=== PATIENT | female | born 1935 | race Caucasian/White ===

== ENCOUNTER 2021-05-06 16:24 | Inpatient (IN) | payer MEDICARE, BC, SELFPAY ==
[2021-05-06] VITALS (9 sets, daily range): BP systolic 116–160; BP diastolic 60–91; PULSE 56–78; RESP 14–19; TEMP 36.7–36.9; O2SAT 96–98; BMI 32.8
--- NOTE | 2021-05-06 16:26 | ECG_ITS ---
APPROVED REPORT Exam: Resting ECG HR:65 bpm ECG Measurements Heart Rate 65 AXES QRSd 90 QRS 52 QT 440 T 65 QTc 457 Conclusion Atrial fibrillation with a competing junctional pacemaker with premature ventricular or aberrantly conducted complexes Abnormal ECG Electronically signed by : Pk Alfrao MD 05/07/2021 07:55:14
--- NOTE | 2021-05-06 16:34 | XR_ITS ---
PROCEDURE INFORMATION: Exam: XR Chest Exam date and time: 05/06/2021 4:34 PM Age: 86 years old Clinical indication: Shortness of breath and other: Weakness; Additional info: Weakness, SOB TECHNIQUE: Imaging protocol: XR of the chest. Views: 1 view. COMPARISON: CR XR CHEST 2V 06/04/2019 5:00 PM FINDINGS: Lungs: Unremarkable. No consolidation. Pleural spaces: Unremarkable. No pleural effusion. No pneumothorax. Heart/Mediastinum: Unremarkable. No cardiomegaly. Bones/joints: Unremarkable. IMPRESSION: No acute findings.
--- NOTE | 2021-05-06 16:40 | HMH.EDGENADL ---
ED Disposition Clinical Impression: Afib Qualifiers: Atrial fibrillation type: persistent (not longstanding) Qualified Code(s): I48.19 - Other persistent atrial fibrillation Syncope Qualifiers: Syncope type: unspecified Qualified Code(s): R55 - Syncope and collapse Disposition: Admitted as Observation Condition on Discharge: Fair - Critical Care Critical Care Time: No Attestation: On , the high probability of a clinically significant, sudden or life threatening deterioration of the following system(s) required my full and direct attention, intervention and personal management. The time I documented below is in addition to time spent performing reported procedures but includes the following listed in this critical care notation. Medical Decision Making - Medical Records Medical records reviewed: Yes: I reviewed the patient's medical records. - Daniel Inquiry Pt receiving controlled substance: No Vital Signs: 05/06/21 16:29 05/06/21 17:01 05/06/21 17:30 Temperature 98.3 F Temperature Source Oral Pulse Rate 61 61 Pulse Rate [Left Radial] 61 Pulse Rate [Orthostatic Lying Apical] Pulse Rate [Orthostatic Sitting Apical] Pulse Rate [Orthostatic Standing Apical] Respiratory Rate 14 18 16 Blood Pressure 116/61 132/80 Blood Pressure [Orthostatic Lying Right Arm] Blood Pressure [Orthostatic Sitting Right Arm] Blood Pressure [Orthostatic Standing Right Arm] Blood Pressure [Right Arm] 133/60 Blood Pressure Mean 72 97 Blood Pressure Mean [Right Arm] 84 Blood Pressure Source Blood Pressure Source [Right Arm] Automatic Cuff Blood Pressure Position Blood Pressure Position [Right Arm] Sitting 02 Sat by Pulse Oximetry 96 96 96 Oxygen Delivery Method Room Air 05/06/21 18:00 05/06/21 18:52 05/06/21 20:04 Temperature 98.1 F Temperature Source Oral Pulse Rate 56 L 75 Pulse Rate [Left Radial] Pulse Rate [Orthostatic Lying Apical] 64 Pulse Rate [Orthostatic Sitting Apical] 73 Pulse Rate [Orthostatic Standing Apical] 70 Respiratory Rate 18 15 Blood Pressure 143/79 H 155/87 H Blood Pressure [Orthostatic Lying Right Arm] 160/90 H Blood Pressure [Orthostatic Sitting Right Arm] 140/88 Blood Pressure [Orthostatic Standing Right Arm] 157/80 H Blood Pressure [Right Arm] Blood Pressure Mean 97 Blood Pressure Mean [Right Arm] Blood Pressure Source Automatic Cuff Blood Pressure Source [Right Arm] Blood Pressure Position Sitting Blood Pressure Position [Right Arm] 02 Sat by Pulse Oximetry 96 Oxygen Delivery Method Room Air - Lab Data Lab Results 05/06/21 16:53: WBC 6.6, RBC 4.37, Hgb 14.0, Hct 40.2, MCV 92.1, MCH 32.0 H, MCHC 34.8, RDW 13.8, Plt Count 278, MPV 8.1, Neut % (Auto) 68.3, Lymph % (Auto) 20.8, Simpson % (Auto) 5.8, Eos % (Auto) 3.9, Baso % (Auto) 1.2, Neut # (Auto) 4.5, Lymph # (Auto) 1.4, Simpson # (Auto) 0.4, Eos # (Auto) 0.3, Baso # (Auto) 0.1 05/06/21 16:53: Sodium 133 L, Potassium 4.6, Chloride 102, Carbon Dioxide 19 L, Anion Gap 16.6 H, BUN 38 H, Creatinine 1.90 H, Estimated Creat Clear 28, Estimated GFR 25 L, Est GFR ( Amer) 30 L, Glucose 188 H, Calcium 9.1, Troponin I < 0.01 05/06/21 16:53: D-Dimer 0.80 H 05/06/21 17:00: SARS-CoV-2 (PCR) Not detected, Influenza A Untype (PCR) Not detected, Influenza Type B (PCR) Not detected Result diagrams: 05/06/21 16:53 05/06/21 16:53 Orders (Tests/Meds): ED MEDICATIONS Generic Name Dose Route Start Last Admin Trade Name Freq PRN Reason Stop Dose Admin Acetaminophen 650 mg 05/06/21 19:55 Acetaminophen 325mg Tab PO 06/05/21 20:05 Q4HP PRN Fever or Mild Pain Enoxaparin Sodium 40 mg 05/07/21 09:00 Enoxaparin 40mg/0.4ml Syringe SQ 06/06/21 08:59 DAILY RAOUL Lactated Ringer's 1,000 mls @ 50 mls/hr 05/06/21 19:55 05/06/21 20:08 Lactated Ringer's 1000 Ml Bag IV 06/05/21 20:05 50 mls/hr .Q20H RAOUL Administration Ondansetron HCl 4 mg
[2021-05-06 17:13] LABS: Coronavirus 19, PCR Not Detected (NotDetected); Influenza A, PCR Not Detected (NotDetected); Influenza B, PCR Not Detected (NotDetected)
[2021-05-06 17:18] LABS: Anion Gap 16.6 mEq/L (5-15); Blood Urea Nitrogen 38 mg/dl (7-17); Calcium 9.1 mg/dl (8.4-10.2); Carbon Dioxide 19 mmol/L (22.0-30.0); Chloride 102 mmol/L (98-107); Creatinine Clearance Estimated 28 mL/min (50-200); Estimated Glomerular Filt Rate 25 ml/min (>60); GFR (African American) 30 ML/MIN (>60); Glucose 188 mg/dl (74-100); Potassium 4.6 mmoL/L (3.5-5.1); Sodium 133 mmol/L (136-145)
[2021-05-06 17:30] LABS: Basophils # 0.1 K/mm3 (0-0.2); Basophils % 1.2 % (0.1-2.0); Eosinophils # 0.3 K/mm3 (0.0-0.4); Eosinophils % 3.9 % (0.1-12.0); Hematocrit 40.2 % (37.0-47.0); Lymphocytes # 1.4 K/mm3 (0.7-4.5); Lymphocytes % 20.8 % (10-50); Mean Corpuscular HGB Conc 34.8 g/dL (31.8-35.4); Mean Corpuscular Volume 92.1 fl (81-99); Mean Platelet Volume 8.1 fl (7.4-10.4); Monocytes # 0.4 K/mm3 (0.1-1.0); Monocytes % 5.8 % (1.7-9.3); Neutrophils # 4.5 K/mm3 (1.8-7.8); Neutrophils % 68.3 % (37.0-80.0); Platelet Count 278 K/mm3 (142-424); Red Blood Count 4.37 M/mm3 (4.20-5.40); Red Cell Distribution Width 13.8 % (11.5-17.5); White Blood Count 6.6 K/mm3 (4.8-10.8)
[2021-05-06 17:41] LABS: Troponin I < 0.01 ng/ml (0.00-0.034)
--- NOTE | 2021-05-06 18:30 | ECG_ITS ---
APPROVED REPORT Exam: Resting ECG HR:51 bpm ECG Measurements Heart Rate 51 AXES QRSd 94 QRS 62 QT 430 T 75 QTc 396 Conclusion Atrial fibrillation with slow ventricular response Abnormal ECG Electronically signed by : Pk Alfaro MD 05/07/2021 07:55:04
--- NOTE | 2021-05-06 19:12 | PC.NURSE ---
MALIKA GIBBS speaking with Dr. Roca at this time.
--- NOTE | 2021-05-06 20:47 | PC.NURSE ---
PT ARRIVED TO FLOOR VIA W/C FROM ED W/STAFF @ 2046
[2021-05-07] VITALS (8 sets, daily range): BP systolic 127–156; BP diastolic 61–86; PULSE 60–92; RESP 14–17; TEMP 36.4–37; O2SAT 95–97; BMI 32.5
[2021-05-07 06:51] LABS: Basophils # 0.1 K/mm3 (0-0.2); Basophils % 1.1 % (0.1-2.0); Eosinophils # 0.2 K/mm3 (0.0-0.4); Eosinophils % 2.8 % (0.1-12.0); Hematocrit 40.9 % (37.0-47.0); Hemoglobin 13.7 g/dL (12.2-16.2); Lymphocytes # 1.7 K/mm3 (0.7-4.5); Lymphocytes % 24.1 % (10-50); Mean Corpuscular HGB Conc 33.4 g/dL (31.8-35.4); Mean Corpuscular Hemoglobin 32.2 pg (27.0-31.2); Mean Corpuscular Volume 96.3 fl (81-99); Mean Platelet Volume 7.5 fl (7.4-10.4); Monocytes # 0.5 K/mm3 (0.1-1.0); Monocytes % 7.1 % (1.7-9.3); Neutrophils # 4.5 K/mm3 (1.8-7.8); Platelet Count 285 K/mm3 (142-424); Red Blood Count 4.24 M/mm3 (4.20-5.40); Red Cell Distribution Width 13.7 % (11.5-17.5); White Blood Count 6.9 K/mm3 (4.8-10.8)
[2021-05-07 06:56] LABS: Chloride 105 mmol/L (98-107)
[2021-05-07 06:57] LABS: Potassium 4.4 mmoL/L (3.5-5.1); Sodium 136 mmol/L (136-145)
[2021-05-07 06:59] LABS: Blood Urea Nitrogen 32 mg/dl (7-17); Creatinine Clearance Estimated 31 mL/min (50-200); Estimated Glomerular Filt Rate 28 ml/min (>60); GFR (African American) 34 ML/MIN (>60)
[2021-05-07 07:00] LABS: Anion Gap 14.4 mEq/L (5-15); Carbon Dioxide 21 mmol/L (22.0-30.0); Glucose 100 mg/dl (74-100); Magnesium 1.4 mg/dl (1.6-2.3)
--- NOTE | 2021-05-07 07:08 | PC.NURSE ---
pt admitted this shift, tele reveals atrial fibrillation with pvc's at a controlled rate 70-80, pt complained of insomnia and given tylenol to help rest, pt was restless most of the night, VSS, up to BSC with no complaints of dizziness and tolerates well.
--- NOTE | 2021-05-07 09:32 | HMH.HP ---
*Admission Date: 05/06/21 *Chief complaint: Weakness *History of present illness: This 86-year-old white female was admitted to the emergency room yesterday with complaints of weakness. She was found to be in atrial fibrillation with a slow ventricular response. She was admitted for further evaluation and treatment. She is not aware that she has had any problems with dysrhythmia in the past. Significant in her recent history is the loss of her 64-year-old son due to complications of multiple myeloma. She has certainly been stressed and saddened by this loss. Certainly these circumstances could raise the issue of Takotsubo cardiomyopathy. The patient has longstanding hypertension. She takes Cardizem to 40 mg daily and carvedilol 12.5 mg twice daily. I asked the emergency room doctor to not start the labetalol. Actually none of her routine medications were started last night. Apart from the weakness the patient has not experienced chest pain or shortness of breath. She has not experienced swelling. She was scheduled to see Dr. Monroe last week but the circumstances of her son's preempted this visit. There is a family history of heart disease. [facility] History Medical History: Reports:: Cancer (BLADDER), Hyperlipidemia, Hypertension Denies:: Atrial Fibrillation (No known prior history), Cardiomyopathy (No known prior history), Coronary Artery Disease (No known prior history), Diabetes Mellitus Type 1, Diabetes Mellitus Type 2, MRSA, Myocardial Infarction (No known prior history) *Have you ever received a pneumonia vaccine?: No *Have you received a flu vaccine this season?: No Other Medical History: Reports: Arthritis (Involving most all joints.) Other Surgeries: Yes: Colon Resection Amputation: No Fractures: No - *Social History Last grade of school completed: High school graduate Smoking Status: Never smoker Alcohol Intake: never *Occupational Status:: retired Household Members: none *Travel in the last 8 weeks: None Family Hx:: Cancer, Coronary Artery Disease, Hypertension, no Heart Attack (Congestive heart failure) LMP comments: post menopausal Review of Systems - Constitutional Reports body ache(s), Reports weakness, Denies chills, Denies fever(s) - Eyes Denies change in vision - ENT Reports abnormal hearing, Reports dizziness - *Cardiovascular Reports leg pain with activity, Reports irregular heart rhythm (Not previously aware), Reports lightheadedness, Denies chest pain, Denies chest pain at rest, Denies chest pain with activity, Denies shortness of breath causing sudden awakening, Denies foot swelling, Denies fast heart rate - *Respiratory Denies chest congestion, Denies cough - *Gastrointestinal Denies abdominal pain - *Genitourinary Denies abnormal periods - *Musculoskeletal Reports joint pain, Reports joint swelling, Reports limited joint movement, Reports muscle cramps (Legs), Reports muscle weakness, Reports body aches - Integumentary/Breasts Denies bleeding lesions, Denies yellowing of the skin - *Neurologic Reports dizziness, Reports weakness - Psychiatric Reports depression - Endocrine Reports rapid, pounding, or irregular heartbeat (Not aware), Denies cold intolerance, Denies excessive sweating - Hematologic/Lymphatic Denies easy bleeding, Denies easy bruising Meds Home Medications Medication Instructions Recorded Confirmed Type Losartan Potassium [Cozaar 100mg 100 mg PO DAILY 06/04/19 05/06/21 History Tablets] Omeprazole 20 mg PO DAILY 06/04/19 05/06/21 History Spironolactone [Spironolactone 25 mg PO BID 06/04/19 05/06/21 History 25mg Tablet] Temazepam [Restoril 15mg capsule] 15 mg PO HS 06/04/19 05/06/21 History carvediloL [Carvedilol 12.5mg Tab] 12.5 mg PO TID 06/04/19 05/06/21 History dilTIAZem HCL [Cartia Xt] 240 mg PO DAILY 06/04/19 05/06/21 History Escitalopram Oxalate 10 mg PO DAILY 05/06/21 05/06/21 History Nabumetone 500 mg PO TID 05/06/21 05/06/21 Hist
--- NOTE | 2021-05-07 10:06 | P.CONPHA_ITS ---
[facility] Pharmacy VTE Monitoring - Patient Demographics Admission date: 05/07/21 Report Date: 05/07/21 Time: 10:07 Allergies/Adverse Reactions: Patient Allergies Lffyzfp-Swq-Iqa Reductase Inhibitor [RONYXJP-HTX-ECT REDUCTASE INHIBITOR] Allergy (Unknown, Verified 06/04/19 16:43) Height: 1.6 m Weight: 83.5 kg Patient Problems: Current Active Problems Afib (Acute) Syncope (Acute) Bradycardia (Acute) Arthropathy (Acute) Situational depression (Acute) Weakness (Acute) Near syncope (Acute) - VTE Risk Labs: VTE Related Lab Results Hgb 13.7 g/dL (12.2-16.2) 05/07/21 06:15 Hct 40.9 % (37.0-47.0) 05/07/21 06:15 Plt Count 285 K/mm3 (142-424) 05/07/21 06:15 BUN 32 mg/dl (7-17) H 05/07/21 06:15 Creatinine 1.70 mg/dl (0.52-1.04) H 05/07/21 06:15 Estimated Creat Clear 31 mL/min (50-200) 05/07/21 06:15 VTE Score: 3 VTE Risk Level: Low Risk - Prophylaxis Types of VTE Prophylaxis: TEDS Knee High, Pharmacological Location of Applied Device: Bilateral Lower Extremeties Pharmacologic Type: Enoxaparin (LOVENOX AND NICOLE HOSE ORDERED)
[2021-05-08] VITALS: BP 136/71; PULSE 70; PULSE 89; RESP 16; TEMP 37.1; O2SAT 94
--- NOTE | 2021-05-08 02:48 | PC.NURSE ---
SINCE TAKING OVER CARE FOR PT AT 0100, PT HAS BEEN SLEEPING. HAS HAD NO C/O THUS FAR. HAS BEEN CONTROLLED AFIB ON TELE. VSS WILL CONTINUE TO MONITOR.
[2021-05-08 04:00] VITALS: PULSE 70
[2021-05-08 06:00] VITALS: BP 140/81; PULSE 85; RESP 14; TEMP 36.8; O2SAT 96
[2021-05-08 06:18] VITALS: BMI 32.5
[2021-05-08 08:00] VITALS: BP 153/89; PULSE 57; PULSE 79; RESP 15; TEMP 36.7; O2SAT 95
--- NOTE | 2021-05-08 08:00 | CA_ITS ---
APPROVED REPORT EXAM: Comprehensive 2D, Doppler, and color-flow Echocardiogram Gaming Commissioner: Petra Carl CRT Ht: 5 ft 2 in Wt: 184lbs BSA: 1.85 BP: 132/80 mmHg Indications: DNR, Bladder CA, recent of son 2D Dimensions LVOT 1.88 cm (M/F) 1.5-2.5 LA Volume 24.80 mL LA Volume Index 13.50 mL/m2 (M/F) 16-34 M-Mode Dimensions RVDd 2.90 cm (0.9-2.6) LA Diam 3.32 cm (1.9-4.0) LVDd 3.65 cm (3.5-5.7) Ao Diam 3.07 cm (2.0-3.7) LVDs 1.99 cm (3.5-5.7) IVSd 1.86 cm (0.6-1.1) PWd 0.69 cm (0.6-1.1) EF (Teich) 77.60% FS 45.50% EDV (Teich) 56.30 mL TAPSE 1.45 (<1.7) ESV (Teich) 12.60 mL Aortic Valve AO Peak GR. 4.40 mmHg Pulmonary Valve PV Peak Velocity 111.00 (50-150 cm/s) Tricuspid Valve TR P. Velocity 203.00 cm/s RAP Estimate 10.00 mmHg RVSP 26.50 mmHg Left Ventricle Left atrium is mildly enlarged, left ventricle is normal size, mild concentric left ventricular hypertrophy, visually estimated ejection fraction 55% with no obvious regional wall motion abnormality, diastolic parameters are inconclusive. Right Ventricle Right atrium and right ventricle are mildly enlarged with normal contractility. Aortic Valve Aortic valve is minimally thickened and calcified without aortic stenosis or aortic insufficiency. Mitral Valve Mitral valve leaflets are minimally thickened, there is mild mitral regurgitation. Tricuspid Valve Tricuspid valve grossly normal, there is mild tricuspid regurgitation, tricuspid regurgitation jet velocity is inadequate for calculation of the right ventricular systolic pressure. Pulmonic Valve Pulmonic valve is poorly visualized. Great Vessels Aortic root is normal size. Inferior vena cava is not well visualized. Pericardium No significant pericardial effusion noted. Conclusion 1. Mild biatrial enlargement, normal left ventricular size, mild concentric left ventricular hypertrophy, visually estimated ejection fraction 55% with no regional wall motion abnormality, diastolic parameters are inconclusive. 2. Mild mitral and tricuspid regurgitation. 3. No significant pericardial effusion noted. Electronically signed by : Ariel Lorenz MD 05/08/2021 20:31:01
--- NOTE | 2021-05-08 09:03 | HMH.ACPN2 ---
<Andria Ocampo - Last Filed: 05/08/21 09:03> Internal Medicine - PN: Subj *Date: 05/08/21 *Time: 09:03 Interval history: Pt has rested well overnight and is without complaint this morning. She denies SOB, CP, or palpitations. She is voiding qshift on BSC. Exam Vital signs and Labs for Last 24 Hours: Temp Pulse Resp BP Pulse Ox 98.0 F 57 L 15 153/89 H 95 05/08/21 08:00 05/08/21 08:00 05/08/21 08:00 05/08/21 08:00 05/08/21 08:00 I & O for Last 24 hours: Intake & Output 05/05/21 05/06/21 05/07/21 05/08/21 11:59 11:59 11:59 11:59 Intake Total 569 / 569 600 / 600 Balance 569 / 569 600 / 600 Weight 184 lb 1.376 oz 183 lb 9.6 oz - Constitutional no acute distress - *Routine HEENT Exam Head: Present: normocephalic ENT: Present: mucous membranes moist - *Routine Respiratory Exam Present: CTA bilaterally - *Routine Cardiovascular Exam Present: irregularly irregular - *Routine Abdominal Exam Present: soft, normoactive bowel sounds. Absent: tenderness, distended, guarding, rigid, mass - *Routine Extremities Exam Present: full ROM, pulses intact. Absent: edema, calf tenderness, extremity cold to touch - *Routine Neurological Exam Present: alert, oriented X3, moving all extremities, normal speech Assessment and Plan (1) Afib Status: Acute Qualifiers: Atrial fibrillation type: persistent (not longstanding) Qualified Code(s): I48.19 - Other persistent atrial fibrillation Category: Medical Code(s): I48.91 - Unspecified atrial fibrillation (2) Bradycardia Status: Acute Category: Medical Code(s): R00.1 - Bradycardia, unspecified (3) Near syncope Status: Acute Category: Medical Code(s): R55 - Syncope and collapse (4) Weakness Status: Acute Category: Medical Code(s): R53.1 - Weakness (5) Situational depression Status: Acute Category: Medical Code(s): F43.21 - Adjustment disorder with depressed mood (6) Arthropathy Status: Acute Category: Medical Code(s): M12.9 - Arthropathy, unspecified - Assessment and plan all Dx Assessment and Plan for all problems:: Echo pending. Await cardiology input. Further per Dr. Monroe. <Ben Monroe - Last Filed: 06/17/21 22:29> Internal Medicine - PN: Subj *Date: 06/17/21 *Time: 22:29 Exam Vital signs and Labs for Last 24 Hours: Temp Pulse Resp BP Pulse Ox 98.1 F 89 18 124/76 97 05/08/21 12:06 05/08/21 12:06 05/08/21 12:06 05/08/21 12:06 05/08/21 12:06 Assessment and Plan (1) Afib Status: Acute Qualifiers: Atrial fibrillation type: persistent (not longstanding) Qualified Code(s): I48.19 - Other persistent atrial fibrillation Category: Medical Code(s): I48.91 - Unspecified atrial fibrillation (2) Bradycardia Status: Acute Category: Medical Code(s): R00.1 - Bradycardia, unspecified (3) Near syncope Status: Acute Category: Medical Code(s): R55 - Syncope and collapse (4) Weakness Status: Acute Category: Medical Code(s): R53.1 - Weakness (5) Situational depression Status: Acute Category: Medical Code(s): F43.21 - Adjustment disorder with depressed mood (6) Arthropathy Status: Acute Category: Medical Code(s): M12.9 - Arthropathy, unspecified - Assessment and plan all Dx Assessment and Plan for all problems:: Patient seen and examined this AM. Concur with above assessment and plan.
--- NOTE | 2021-05-08 09:44 | HMH.CNCARD ---
History of Present Illness Consult date: 05/08/21 Requesting physician: Ben Monroe Consult reason: atrial fibrillation Chief complaint: New onset Atrial fib History of present illness: 86-year-old female admitted to [facility] with new onset atrial fibrillation. Patient presented to the ER on 05/07/2021 with new onset atrial fibrillation at a controlled rate. Patient states she has no known history of atrial fibrillation or heart disease. Patient states she is in morning due to her son's passing a few days ago. Patient states that she has been very stressed due to the sudden of her son. Due to the stress patient has been under, there can be a concern for Takotsubo cardiomyopathy due to sounds loss. Patient does states she has history of hypertension and hyperlipidemia. Patient denies chest pain, tightness or pressure. Patient denies shortness of breath. No swelling noted of the lower extremities. Patient states she is just waiting to go home so she can mourn for over her son. Patient continues to be in atrial fibrillation with a heart rate of 88 bpm. Patient is on currently on Lovenox. Due to new onset of atrial fibrillation and hypertension, patient would benefit from anticoagulation. Patient is currently on beta-karyna and diltiazem. This seems to control heart rate. Vital signs are stable. Chest x-ray revealed no acute findings. Echocardiogram was performed. Preliminary echocardiogram reveals EF 50% with mild MR and TR noted. Waiting official echocardiogram results. Creatinine level noted 1.70. [facility] History I have reviewed the patient's past medical history: Yes Medical History: Reports:: Cancer (BLADDER), Hyperlipidemia, Hypertension Denies:: Atrial Fibrillation (No known prior history), Cardiomyopathy (No known prior history), Coronary Artery Disease (No known prior history), Diabetes Mellitus Type 1, Diabetes Mellitus Type 2, MRSA, Myocardial Infarction (No known prior history) *Have you ever received a pneumonia vaccine?: No *Have you received a flu vaccine this season?: No Other Medical History: Reports: Arthritis (Involving most all joints.) Other Surgeries: Yes: Colon Resection Amputation: No Fractures: No - *Social History Last grade of school completed: High school graduate Smoking Status: Never smoker Alcohol Intake: never *Occupational Status:: retired Household Members: none *Travel in the last 8 weeks: None Family Hx:: Cancer, Coronary Artery Disease, Hypertension, no Heart Attack (Congestive heart failure) LMP comments: post menopausal Meds Home Medications Medication Instructions Recorded Confirmed Type Losartan Potassium [Cozaar 100mg 100 mg PO DAILY 06/04/19 05/06/21 History Tablets] Omeprazole 20 mg PO DAILY 06/04/19 05/06/21 History Spironolactone [Spironolactone 25 mg PO DAILY 06/04/19 05/07/21 History 25mg Tablet] Temazepam [Restoril 15mg capsule] 15 mg PO HS 06/04/19 05/06/21 History carvediloL [Carvedilol 12.5mg Tab] 12.5 mg PO TID 06/04/19 05/06/21 History dilTIAZem HCL [Cartia Xt] 240 mg PO DAILY 06/04/19 05/06/21 History Escitalopram Oxalate 10 mg PO DAILY 05/06/21 05/06/21 History Nabumetone 500 mg PO TID 05/06/21 05/06/21 History Allergies Allergy/AdvReac Type Severity Reaction Status Date / Time Ftdthrr-Gnc-Rpd Reductase Allergy Unknown Verified 06/04/19 16:43 Inhibitor [VZEKZOQ-QQI-CBZ REDUCTASE INHIBITOR] Exam Vital signs and Labs for Last 24 Hours: Temp Pulse Resp BP Pulse Ox 98.0 F 57 L 15 153/89 H 95 05/08/21 08:00 05/08/21 08:00 05/08/21 08:00 05/08/21 08:00 05/08/21 08:00 I & O for Last 24 hours: Intake & Output 05/05/21 05/06/21 05/07/21 05/08/21 23:59 23:59 23:59 23:59 Intake Total 1049 / 1049 120 / 120 Balance 1049 / 1049 120 / 120 Weight 184 lb 15.485 oz 184 lb 1.376 oz 183 lb 9.6 oz - Constitutional no acute distress, obese, cooperative - *Routine HE
--- NOTE | 2021-05-08 09:56 | SW/DCPLANNER ---
PATIENT ADMITTED TO [facility] WITH A NEW ONSET AFIB.. SHE WAS SEEN BY CARDIOLOGY AND RECOMMENDATIONS WERE MADE... PATIENT TOLD DR ROBERTSON SHE WANTED TO GO HOME AND MOURN THE OF HER SON THAT UNEXPECTEDLY LAST WEEK.. NOT SURE SHE WILL NEED ANY HOME CARE BUT IF SHE DOES AT TIME OF DISPOSITION IT WILL BE SET UP..
[2021-05-08 12:06] VITALS: BP 124/76; PULSE 89; RESP 18; TEMP 36.7; O2SAT 97
--- NOTE | 2021-05-08 13:18 | PC.NURSE ---
patient ready for discharge to home today
--- NOTE | 2021-05-09 09:11 | HMH.DCSUM ---
General - General Admission date:: 05/06/21 <Ben Monroe - 06/18/21 09:36> 05/06/21 <Andria Ocampo - 05/09/21 09:23> Discharge date: 05/08/21 <Andria Ocampo - 05/09/21 09:23> HPI HPI: Ms. Arias was an 86-year-old white female who was admitted through the emergency room with complaints of weakness. She was found to be in atrial fibrillation with a slow ventricular response. She was admitted for further evaluation and treatment. She was not aware that she had had any problems with dysrhythmia in the past. Significant in her recent history was the loss of her 64-year-old son due to complications of multiple myeloma. She had certainly been stressed and saddened by this loss. Certainly these circumstances could have raised the issue of Takotsubo cardiomyopathy. The patient had longstanding hypertension. She was taking Cardizem to 40 mg daily and carvedilol 12.5 mg twice daily. The emergency room doctor was asked to not start the labetalol and her home medications were not restarted. Apart from the weakness the patient had not experienced chest pain or shortness of breath. She had not experienced swelling. She had been scheduled to see Dr. Monroe but the circumstances of her son's had preempted that visit. There was a family history of heart disease. <Andria Ocampo - 05/09/21 09:23> Hospital Course Hospital Course: She was seen by cardiology who felt she would benefit from anticoagulation due to new onset of atrial fibrillation and hypertension and was started on Xarelto. Preliminary echocardiogram showed EF 50% with mild MR and TR noted. Her heart rate remained well-controlled on her current beta-karyna and diltiazem. She was felt to be stable for discharge with plan for outpatient cardiology followup in 1-2 weeks. <Andria Ocampo - 05/09/21 09:23> Objective Vital signs: Temp Pulse Resp BP Pulse Ox 98.1 F 89 18 124/76 97 05/08/21 12:06 05/08/21 12:06 05/08/21 12:06 05/08/21 12:06 05/08/21 12:06 <Ben Monroe - 06/18/21 09:36> Temp Pulse Resp BP Pulse Ox 98.1 F 89 18 124/76 97 05/08/21 12:06 05/08/21 12:06 05/08/21 12:06 05/08/21 12:06 05/08/21 12:06 <Andria Ocampo - 05/09/21 09:23> DS: Diagnosis - Discharge Diagnosis (1) Afib Status: Acute (2) Bradycardia Status: Acute (3) Near syncope Status: Acute (4) Weakness Status: Acute (5) Situational depression Status: Acute (6) Arthropathy Status: Acute <Andria Ocampo - 05/09/21 09:11> (1) Afib Status: Acute (2) Bradycardia Status: Acute (3) Near syncope Status: Acute (4) Weakness Status: Acute (5) Situational depression Status: Acute (6) Arthropathy Status: Acute <Ben Monroe - 06/18/21 09:36> Discharge Plan - Patient Discharge Instructions ACTIVITY: Continue current activity <Andria Ocampo - 05/09/21 09:23> Patient Instructions: DI for Syncope in Adults (Fainting), Atrial Fibrillation, DI for Atrial Fibrillation <Ben Monroe - 06/18/21 09:36> Forms: <Ben Monroe - 06/18/21 09:36> - Follow up Plan Follow up with: Ben Monroe MD [Primary Care Provider] - 05/22/21 2:15 pm Rigoberto Cline MD [Staff Physician] - 05/15/21 11:30 am <Ben Monroe - 06/18/21 09:36> Disposition: Home, Self-Care <Ben Monroe - 06/18/21 09:36> Condition at discharge:: Stable <Andria Ocampo - 05/09/21 09:23> Home Medications: Home Medications Medication Instructions Recorded Confirmed Type Losartan Potassium [Cozaar 100mg 100 mg PO DAILY 06/04/19 05/06/21 History Tablets] Omeprazole 20 mg PO DAILY 06/04/19 05/06/21 History Spironolactone [Spironolactone 25 mg PO DAILY 06/04/19 05/07/21 History 25mg Tablet] Temazepam [Restoril 15mg capsule] 15 mg PO HS 06/04/19 05/06/21 History carvediloL [Carvedilol 12.5mg Tab] 12.5 mg PO TID 06/04/19 05/06/21 H
== END 2021-05-08 13:30 | disposition home or self-care (01) | DRG 310 ==
LOC: ER 16:55 → 2ND 19:37
PROVIDERS: Admitting Provider Family Medicine; Emergency Provider Emergency Medicine; PCP Family Medicine; Visit Provider Family Medicine
DX: I48.91 Unspecified atrial fibrillation (principal); Z85.51 Personal history of malignant neoplasm of bladder; I10 Essential (primary) hypertension; E78.5 Hyperlipidemia, unspecified; F43.21 Adjustment disorder with depressed mood; R00.1 Bradycardia, unspecified; Z20.822 Contact with and (suspected) exposure to COVID-19
CPT/HCPCS: 36415; 71045; 80048; 83735; 84484; 85025; 85378; 93005; 93306; 99284; C9803; U0003; U0005

== ENCOUNTER → 2022-06-05 18:41 | Outpatient (CLI) | payer MEDICARE, BC, SELFPAY ==
[2022-06-05 16:11] LABS: MANUAL DIFFERENTIAL MANUAL DIFFERENTIAL (MANUAL DIFF)
[2022-06-05 16:57] LABS: Basophils # 0.1 K/mm3 (0-0.2); Basophils % 1.6 % (0.1-2.0); Eosinophils # 0.4 K/mm3 (0.0-0.4); Eosinophils % 5.1 % (0.1-12.0); Hematocrit 44.6 % (37.0-47.0); Hemoglobin 14.5 g/dL (12.2-16.2); Lymphocytes # 1.9 K/mm3 (0.7-4.5); Lymphocytes % 25.9 % (10-50); Mean Corpuscular HGB Conc 32.6 g/dL (31.8-35.4); Mean Corpuscular Hemoglobin 30.9 pg (27.0-31.2); Mean Corpuscular Volume 94.7 fl (81-99); Monocytes # 0.5 K/mm3 (0.1-1.0); Monocytes % 6.2 % (1.7-9.3); Neutrophils # 4.5 K/mm3 (1.8-7.8); Neutrophils % 61.2 % (37.0-80.0); Platelet Count 318 K/mm3 (142-424); Red Blood Count 4.71 M/mm3 (4.20-5.40); Red Cell Distribution Width 14.2 % (11.5-17.5); White Blood Count 7.4 K/mm3 (4.8-10.8)
[2022-06-05 17:39] LABS: Eosinophils % 1 % (0-3); Lymphocytes % 24 % (10-50); Macrocytosis 1+; Monocytes % 10 % (2-9); Neutrophils % 65 % (42-76); Platelet Estimate Normal; Total Cells Counted 100
[2022-06-05 17:46] LABS: Alanine Aminotransferase 15 U/L (12-78); Albumin Level 4.7 g/dl (3.5-5.0); Albumin/Globulin Ratio 1.4 (1.1-1.8); Alkaline Phosphatase 70 U/L (38-126); Anion Gap 17.1 mEq/L (5-15); Aspartate Amino Transferase 24 U/L (14-36); Bilirubin,Total 1.2 mg/dl (0.2-1.3); Blood Urea Nitrogen 26 mg/dl (7-17); Calcium 9.5 mg/dl (8.4-10.2); Carbon Dioxide 21 mmol/L (22.0-30.0); Chloride 104 mmol/L (98-107); Estimated Glomerular Filt Rate 35 ml/min (>60); GFR (African American) 43 ML/MIN (>60); Globulin 3.3 g/dL (1.3-3.2); Glucose 100 mg/dl (74-100); HDL Cholesterol 41 mg/dl (40-60); Potassium 5.1 mmoL/L (3.5-5.1); Sodium 137 mmol/L (136-145); Triglycerides 329 mg/dl (30-150); VLDL Cholesterol 66 mg/dL (0-40)
[2022-06-05 17:57] LABS: Chol/HDL Ratio 8.3 (1-3.5); Cholesterol 341 mg/dl (140-200); Direct LDL Cholesterol 153.09 mg/dL (100-129)
[2022-06-05 18:16] LABS: Thyroid Stimulating Hormone 1.89 uIU/mL (0.465-4.68)
[2022-06-14 02:22] LABS: 1,25 Dihydroxy Vitamin D 20 pg/mL (.); 1,25-Dihydroxy, Vitamin D-2 <10 pg/mL (.); 1,25-Dihydroxy, Vitamin D-3 20 pg/mL (.)
== END ==
PROVIDERS: PCP Nurse Practitioner Family; Visit Provider Nurse Practitioner Family
DX: I48.19 Other persistent atrial fibrillation (principal); F43.21 Adjustment disorder with depressed mood; J40 Bronchitis, not specified as acute or chronic; M12.9 Arthropathy, unspecified; R00.1 Bradycardia, unspecified; R53.1 Weakness; R55 Syncope and collapse; E25.9 Adrenogenital disorder, unspecified; E78.9 Disorder of lipoprotein metabolism, unspecified; E66.3 Overweight; Z68.29 Body mass index [BMI] 29.0-29.9, adult
CPT/HCPCS: 80053; 80061; 82652; 84443; 85007; 85014; 85018; 85048; 85049

== ENCOUNTER 2022-08-21 13:24 | Emergency (ER) | payer MEDICARE, BC, SELFPAY ==
--- NOTE | 2022-08-21 | ECG_ITS ---
APPROVED REPORT Exam: Resting ECG HR:110 bpm ECG Measurements Heart Rate 110 AXES QRSd 101 QRS 80 QT 315 T 7 QTc 380 Conclusion ATRIAL FIBRILLATION WITH RAPID VENTRICULAR RESPONSE WITH ABERRANT CONDUCTION OR VENTRICULAR PREMATURE COMPLEXES LOW QRS VOLTAGE [QRS DEFLECTION < 0.5/1.0 mV IN LIMB/CHEST LEADS] ANTEROSEPTAL MYOCARDIAL INFARCTION , OF INDETERMINATE AGE [40+ ms Q WAVE IN V1-V4] ABNORMAL ECG UNCONFIRMED REPORT Electronically signed by : Pk Alfaro MD 08/21/2022 21:14:15
[2022-08-21 13:24] VITALS: BP 165/100; PULSE 114; RESP 22; TEMP 36.8; O2SAT 96; BMI 35.4
--- NOTE | 2022-08-21 13:24 | PC.NURSE ---
upon arrival to ED pt is unable to answer triage questions, unable to answer multiple questions during the triage, family is on the way and will update triage assessment when they arrive.
--- NOTE | 2022-08-21 13:29 | HMH.EDGENADL ---
Discharge Plan Disposition Patient Disposition: Chief Complaint: Weakness Prescriptions Prescriptions: No Action azelastine 137 mcg (0.1 %) aerosol,spray 2 spray intranasal BID 90 Days Qty: 30 1RF Rx Instructions: administer into each nostril B-complex with vitamin C Capsule 1 cap PO DAILY 90 Days Qty: 90 1RF carvedilol 12.5 mg tablet 12.5 mg PO TID 90 Days Qty: 270 1RF cholecalciferol (vitamin D3) 50 mcg (2,000 unit) capsule 50 mcg PO DAILY 90 Days Qty: 90 1RF diltiazem HCl 240 mg capsule,extended release 24hr 240 mg PO DAILY 90 Days Qty: 90 1RF hydrocortisone [Proctosol HC] 2.5 % cream with perineal applicator 1 applic IA QD-BID PRN (Reason: hemorrhoids) 90 Days Qty: 30 1RF losartan 100 mg tablet 100 mg PO DAILY 90 Days Qty: 90 1RF omeprazole 20 mg capsule,delayed release(DR/EC) 20 mg PO DAILY 90 Days Qty: 90 1RF spironolactone 25 mg tablet 25 mg PO DAILY 90 Days Qty: 90 1RF nabumetone 500 mg tablet 1,000 mg PO BID 90 Days Qty: 360 1RF temazepam 15 mg capsule 15 mg PO HS Rx Instructions: 1-2 tabs qhs Clinical Impressions Clinical Impression: Respiratory failure, Atrial fibrillation with rapid ventricular response Instructions Patient Instructions: DI for Altered Mental Status Discharge ED Provider: João Abernathy General Adult HPI General Chief complaint: Weakness Stated complaint: Weakness Time Seen by Provider: 08/21/22 14:33 Mode of Arrival: EMS Source of Information: EMS Limitations: Altered Mental Status History of Present Illness HPI narrative: Patient presents the emergency department with altered mental status. EMS states that the bystanders did not have a significant amount of information to give. They state that she was still in the bed this morning which is the reason that they went to check on her. They found her with difficulty breathing, minimal responsiveness and brought her to the emergency department for further evaluation and treatment. Last known normal is not well-known. Related Data Home Medications Medication Instructions Recorded Confirmed temazepam 15 mg capsule 15 mg PO HS SLEEP 06/05/22 06/05/22 Previous Rx's Medication Instructions Recorded B-complex with vitamin C 1 cap PO DAILY 90 days #90 caps 06/05/22 azelastine 137 mcg (0.1 %) nasal 2 spray intranasal BID 90 days #30 06/05/22 spray aerosol mL carvedilol 12.5 mg tablet 12.5 mg PO TID HTN 90 days #270 06/05/22 tabs cholecalciferol (vitamin D3) 50 50 mcg PO DAILY 90 days #90 caps 06/05/22 mcg (2,000 unit) capsule diltiazem HCl 240 mg 240 mg PO DAILY HTN 90 days #90 06/05/22 capsule,extended release 24 hr caps hydrocortisone 2.5 % topical cream 1 applic IA QD-BID PRN hemorrhoids 06/05/22 with perineal applicator 90 days #30 grams (Proctosol HC) losartan 100 mg tablet 100 mg PO DAILY HTN 90 days #90 06/05/22 tabs nabumetone 500 mg tablet 1,000 mg PO BID 90 days #360 tabs 06/05/22 omeprazole 20 mg capsule,delayed 20 mg PO DAILY GERD 90 days #90 06/05/22 release caps spironolactone 25 mg tablet 25 mg PO DAILY Fluid 90 days #90 06/05/22 tabs Allergies Allergy/AdvReac Type Severity Reaction Status Date / Time [id number] Reductase Allergy Unknown Verified 06/05/22 13:56 Inhibitor [[id number] REDUCTASE INHIBITOR] [facility] Disclaimer: The information contained in this section may have been updated after the patient was seen, as this information can be updated by other users. Medical History Bladder cancer Bradycardia Bronchitis Diverticulitis Near syncope Syncope Weakness Surgical History H/O cataract extraction History of colon resection Family History Mother Stroke Social History (Reviewed
--- NOTE | 2022-08-21 13:30 | PC.NURSE ---
notified ER of pt presenting s/s, ER to BS
--- NOTE | 2022-08-21 13:32 | PC.NURSE ---
notified rad of CT head stroke protocol
--- NOTE | 2022-08-21 13:33 | CT_ITS ---
FINAL REPORT CLINICAL HISTORY: right sided weakness FINDINGS: Thin section axial CT with IV contrast supplemented with multiplanar reconstruction under CT angiogram protocol. This study was performed with techniques to keep radiation doses as low as reasonably achievable (ALARA). Individualized dose reduction techniques using automated exposure control or adjustment of mA and/or kV according to the patient's size were employed. Exam is markedly degraded by significant motion artifact. There is extensive venous contamination. The cervical arterial system cannot be evaluated. IMPRESSION: Nondiagnostic exam. Reviewed, Interpreted and Dictated by Donta Hutchison MD Transcribed by Johnny Eldridge Authenticated and [facility]
--- NOTE | 2022-08-21 13:33 | CT_ITS ---
FINAL REPORT TECHNIQUE: Thin section axial CT with IV contrast supplemented with multiplanar reconstruction under CT angiogram protocol. 3-D reconstructions were performed. This study was performed with techniques to keep radiation doses as low as reasonably achievable (ALARA). Individualized dose reduction techniques using automated exposure control or adjustment of mA and/or kV according to the patient''s size were employed. CLINICAL HISTORY: AMS, right sided weakness FINDINGS: Exam is severely degraded by patient motion and is incomplete. There is extensive venous contamination. The arterial system is not well evaluated. Patient coded during the exam. IMPRESSION: Nondiagnostic exam. Reviewed, Interpreted and Dictated by Donta Hutchison MD Transcribed by Johnny Eldridge Authenticated and [facility]
--- NOTE | 2022-08-21 13:33 | CT_ITS ---
FINAL REPORT TECHNIQUE: Axial imaging of the head was obtained without contrast. This study was performed with techniques to keep radiation doses as low as reasonably achievable, (ALARA). Individualized dose reduction techniques using automated exposure control or adjustment of mA and/or kV according to the patient''s size were employed. CLINICAL HISTORY: AMS FINDINGS: There is mild to moderate atrophy. There is localized encephalomalacia in the posterior right frontal lobe. There is moderate decreased attenuation in the deep white matter probably due to chronic ischemia. The ventricles are normal in size. There is no evidence of hemorrhage. No masses are identified. No extra-axial fluid is seen. The sinuses are normal. There is no acute osseous abnormality. IMPRESSION: Small focus of encephalomalacia in the posterior right frontal lobe. Atrophy with moderate changes of chronic ischemia. No definite acute intracranial abnormality. Reviewed, Interpreted and Dictated by Donta Hutchison MD Transcribed by Johnny Eldridge Authenticated and [facility]
--- NOTE | 2022-08-21 13:33 | PC.NURSE ---
pt to CT
[2022-08-21 13:53] LABS: Alanine Aminotransferase 22 U/L (12-78); Albumin Level 4.2 g/dl (3.5-5.0); Albumin/Globulin Ratio 1.2 (1.1-1.8); Alkaline Phosphatase 69 U/L (38-126); Anion Gap 15.2 mEq/L (5-15); Aspartate Amino Transferase 54 U/L (14-36); Bilirubin,Total 1.2 mg/dl (0.2-1.3); Blood Urea Nitrogen 24 mg/dl (7-17); Calcium 8.7 mg/dl (8.4-10.2); Carbon Dioxide 22 mmol/L (22.0-30.0); Chloride 107 mmol/L (98-107); Estimated Glomerular Filt Rate 39 ml/min (>60); GFR (African American) 47 ML/MIN (>60); Globulin 3.4 g/dL (1.3-3.2); Glucose 113 mg/dl (74-100); Potassium 4.2 mmoL/L (3.5-5.1); Sodium 140 mmol/L (136-145); Total Protein,Serum 7.6 g/dl (6.3-8.2)
[2022-08-21 13:56] LABS: Activated Partial Thrombo Time 24.5 seconds (22.8-30.6); INR 1.01 (0.9-1.1); Prothrombin Time 10.9 seconds (10.1-12.5)
[2022-08-21 14:16] LABS: Basophils # 0.1 K/mm3 (0-0.2); Basophils % 0.6 % (0.1-2.0); Eosinophils # 0.1 K/mm3 (0.0-0.4); Eosinophils % 1.4 % (0.1-12.0); Hematocrit 37.8 % (37.0-47.0); Hemoglobin 12.3 g/dL (12.2-16.2); Lymphocytes # 1.1 K/mm3 (0.7-4.5); Lymphocytes % 11.3 % (10-50); Mean Corpuscular HGB Conc 32.5 g/dL (31.8-35.4); Mean Corpuscular Hemoglobin 32.2 pg (27.0-31.2); Mean Platelet Volume 8.4 fl (7.4-10.4); Monocytes # 0.5 K/mm3 (0.1-1.0); Monocytes % 5.2 % (1.7-9.3); Neutrophils # 7.9 K/mm3 (1.8-7.8); Neutrophils % 81.4 % (37.0-80.0); Platelet Count 332 K/mm3 (142-424); Red Blood Count 3.82 M/mm3 (4.20-5.40); Red Cell Distribution Width 14.9 % (11.5-17.5); White Blood Count 9.7 K/mm3 (4.8-10.8)
--- NOTE | 2022-08-21 14:50 | PC.NURSE ---
notified bar finish operator of pt .
--- NOTE | 2022-08-21 15:06 | PC.NURSE ---
AJAY contacted at this time spoke with Shanti Ponce. State patient is rulled out for donation. -A.Sudheer BARBER student
[2022-08-21 15:09] VITALS: BMI 35.4
--- NOTE | 2022-08-21 15:10 | PC.NURSE ---
Approx. 1347- patient in CT scanner patient's breathing became labored with possible seizure like activity noted. Nursing staff into CT room to assess patient. She was having agonal respirations and pt.'s mouth was clamped down. Assessed carotid, radial, and femoral pulses no pulse noted. CPR initiated. ER MD and additional staff notified of code blue. 1348 CPR started 1350- EPI no pulse 1352- EPI pulse noted HR 148 1353-agonal breathing 1354- pulse noted 140's HR A fib RVR on zoll ER MD wanting to rescan pts for CTA head 1356- BP 87/67 95% BVM HR 144 1357- 20 mg Etomidate and 100 mg of OZZY given prior to intubation 1358- BP 106/68 HR 130 O@ 95% 7.5 ETT 24 cm @ teeth intubated per ER 1400- A-fib with RVR HR 139 noted on ZOLL 1405-no pulse noted CPR initiated 1406-EPI given 1407- no pulse 2 amps of bicarb given 1408- 1g calcium chloride IV push 1409- no pulse epi given 1411- FSBS 241 I/O established to left tibia. Pulse a fib RVR noted on ZOLL rate 134 1412-CPR no pulse EPI given. PEA noted on ZOLL 1414- EPI given CPR continued PEA noted on ZOLL. Blood noted ET in tube 1416- EPI given CPR continued. PEA noted on ZOLL. speaking to patient's family 1418-Deep suction for blood in tube per RT. EPI given. PEA noted on ZOLL. pt Brother @ BS 1419- time of called per ER MD Moreno RN student
--- NOTE | 2022-08-21 15:20 | PC.NURSE ---
eusebio at BS speaking with pt
[2022-08-21 16:00] VITALS: BP 0/0; PULSE 0; RESP 0; TEMP -17.7; TEMP 0; O2SAT 0
== END 2022-08-21 16:00 | disposition expired ==
PROVIDERS: Emergency Provider Emergency Medicine
DX: J96.90 Respiratory failure, unspecified, unspecified whether with hypoxia or hypercapnia (principal); I48.91 Unspecified atrial fibrillation
CPT/HCPCS: 31500; 70450; 70496; 70498; 80053; 85025; 85610; 85730; 92950; 93005; 96374; 96375; 99291; Q9967